=== PATIENT | male | born 1950 | race American Indian/Alaskan Native ===

== ENCOUNTER 2017-01-03 17:30 | Inpatient (IN) | payer MEDICARE, OTHER ==
[~2017-01-03] VITALS: Ht 182.9 cm; Wt 96.3 kg
[2017-01-03] MEDS ORDERED: CEFTRIAXONE PMX 1GM/50ML 50 ML IVPB ONE (18:30)
[2017-01-03] MEDS ORDERED: SODIUM CHLORIDE FLUSH 10ML SYR IVF ONE (18:30)
[2017-01-03] MEDS ORDERED: AZITHROMYCIN 500 MG in SODIUM CHLORIDE 0.9% 250 ML IVPB ONE (18:30)
[2017-01-03 18:35] LABS: HEMATOCRIT 48.4 % (39.2-51.8); HEMOGLOBIN 16.8 g/dL (13.7-18.0); WHITE BLOOD COUNT 5.3 x10^3/uL (3.4-10)
[2017-01-03] MEDS ORDERED: CEFTRIAXONE PMX 1GM/50ML 50 ML ONE (18:49)
[2017-01-03] MEDS ORDERED: RANI300C PO (18:54)
[2017-01-03] MEDS ORDERED: OMEP-110 PO (18:54)
[2017-01-03 19:05] LABS: BLOOD UREA NITROGEN 17 mg/dL (7-18)
[2017-01-03 19:08] LABS: IS PT STATUS REG ER OR PRE ER? YES
[2017-01-03] MEDS ORDERED: SODIUM CHLORIDE FLUSH 10ML SYR IVF PRN (19:30)
[2017-01-03] MEDS: ENOXAPARIN 40 MG/0.4 ML SQ SCH (20:00)
[2017-01-03] MEDS ORDERED: ONDANSETRON 2MG/ML, 2ML IVPush PRN (20:00)
[2017-01-03] MEDS ORDERED: ACETAMINOPHEN 325 MG TABLET PO PRN (20:00)
[2017-01-03] MEDS ORDERED: POTASSIUM CHLORIDE 20 MEQ TAB.ER.PRT PO ONE (20:00)
[2017-01-03] MEDS ORDERED: hydrALAzine 20 MG/ML, 1ML IVPush PRN (20:00)
[2017-01-03] MEDS ORDERED: GUAIFENESIN/DM 200-20MG, 10ML UDC PO PRN ×2 (20:00)
[2017-01-03] MEDS ORDERED: TEMPLATE NON-FORMULARY MED. (Ranitidine Hcl** 300 MG) PO SCH (21:00)
[2017-01-03] MEDS ORDERED: ALBUTEROL SULFATE 2.5 MG/3 ML NPPB PRN (21:00)
[2017-01-03] MEDS: OMEPRAZOLE 20 MG CAPSULE.DR PO SCH (21:00)
[2017-01-03 21:02] VITALS: BP 106/65
[2017-01-03] MEDS ORDERED: POTASSIUM CHLORIDE 10 MEQ TABLET.ER ONE (22:12)
[2017-01-03] MEDS: SODIUM CHLORIDE 0.9% 1,000 ML IV SCH (22:21)
[2017-01-04 04:47] VITALS: BP 114/74
[2017-01-04 04:59] LABS: HEMATOCRIT 45.1 % (39.2-51.8); HEMOGLOBIN 15.8 g/dL (13.7-18.0); WHITE BLOOD COUNT 3.7 x10^3/uL (3.4-10)
[2017-01-04 05:11] LABS: BLOOD UREA NITROGEN 17 mg/dL (7-18)
[2017-01-04] MEDS: SODIUM CHLORIDE 0.9% 1,000 ML IV SCH (05:34)
[2017-01-04 08:05] VITALS: BP 110/61
[2017-01-04] MEDS: OMEPRAZOLE 20 MG CAPSULE.DR PO SCH ×2 (08:25→20:00)
[2017-01-04] MEDS: FAMOTIDINE 20 MG TABLET PO SCH ×2 (08:25→20:00)
[2017-01-04] MEDS ORDERED: LEVOFLOXACIN 750 MG TABLET PO SCH (09:00)
[2017-01-04] MEDS: CEFTRIAXONE PMX 2GM/50ML 50 ML IV SCH (11:04)
[2017-01-04 13:18] VITALS: BP 119/81
[2017-01-04 19:47] VITALS: BP 119/72
[2017-01-04] MEDS: ENOXAPARIN 40 MG/0.4 ML SQ SCH (20:00)
[2017-01-04] MEDS: DOXYCYCLINE 100MG TABLET PO SCH (20:11)
[2017-01-05 03:16] VITALS: BP 116/67
[2017-01-05 05:47] LABS: HEMOGLOBIN 15.6 g/dL (13.7-18.0); WHITE BLOOD COUNT 4.6 x10^3/uL (3.4-10)
[2017-01-05 05:58] LABS: ASPARTATE AMINO TRANSFERASE 25 U/L (15-37); BLOOD UREA NITROGEN 14 mg/dL (7-18)
[2017-01-05 07:21] VITALS: BP 101/66
[2017-01-05] MEDS: FAMOTIDINE 20 MG TABLET PO SCH (09:00)
[2017-01-05] MEDS: OMEPRAZOLE 20 MG CAPSULE.DR PO SCH (09:00)
[2017-01-05] MEDS: DOXYCYCLINE 100MG TABLET PO SCH (09:04)
[2017-01-05] MEDS: CEFTRIAXONE PMX 2GM/50ML 50 ML IV SCH (10:03)
[2017-01-05] MEDS ORDERED: SODIUM CHLORIDE 0.9% 1,000ML IVBOLUS ONE (12:00)
[2017-01-05 13:32] VITALS: BP 126/79
[2017-01-05] MEDS ORDERED: LEVO750T6 PO (14:34)
[2017-01-05] MEDS ORDERED: GUAI600T80 PO (14:38)
[2017-01-05] MEDS ORDERED: GUAIFENESIN 200 MG TABLET PO SCH (16:00)
== END 2017-01-05 18:12 | disposition home or self-care (01) | DRG 193 ==
LOC: ED 18:35 → EDIP 19:05 → 3NE 20:57
PROVIDERS: ADMIT Hospitalist; ATTEND Hospitalist
DX: J15.9 Unspecified bacterial pneumonia (principal); N17.0 Acute kidney failure with tubular necrosis; J96.01 Acute respiratory failure with hypoxia; E44.1 Mild protein-calorie malnutrition; D69.6 Thrombocytopenia, unspecified; E87.6 Hypokalemia; J31.0 Chronic rhinitis; Z68.28 Body mass index [BMI] 28.0-28.9, adult; J42 Unspecified chronic bronchitis; K21.9 Gastro-esophageal reflux disease without esophagitis; K22.70 Barrett's esophagus without dysplasia
CPT/HCPCS: 36415; 80048; 80053; 82040; 83605; 83735; 83880; 84100; 84145; 84484; 85025; 87040; 93005; 94640; 96365; J0456; J0696; J7613; J7030; J7050

== ENCOUNTER → 2017-07-04 | Outpatient (CLI) | payer MEDICARE, OTHER ==
[~2017-07-04] MED LIST: GUAI600T80 PO; LEVO750T6 PO; OMEP-110 PO; RANI300C PO
== END | disposition home or self-care (01) ==
LOC: RAD 12:34
PROVIDERS: ATTEND Otolaryngology
DX: K11.8 Other diseases of salivary glands (principal)
CPT/HCPCS: 76536; 76942; 88173

== ENCOUNTER → 2018-03-24 | Outpatient (CLI) | payer MEDICARE, OTHER | END | disposition home or self-care (01) | LOC: CFH 09:16 | PROVIDERS: ATTEND Internal Medicine Critical Care Medicine | DX: Z12.2 Encounter for screening for malignant neoplasm of respiratory organs (principal); K44.9 Diaphragmatic hernia without obstruction or gangrene; I25.10 Atherosclerotic heart disease of native coronary artery without angina pectoris; Z87.891 Personal history of nicotine dependence | CPT/HCPCS: G0297 ==